=== PATIENT | female | born 1990 | race Caucasian/White ===

== ENCOUNTER 2022-05-07 11:16 | Emergency (ER) | payer BC, SELFPAY ==
[2022-05-07 13:10] LABS: Urine Blood 1+ (Negative); Urine Glucose Negative (Negative); Urine Protein Negative (Negative); Urine Specific Gravity >=1.030 (1.005-1.030); Urine pH 5.5 (5.0-7.0)
[2022-05-07 13:25] LABS: Urine Mucus Slight /HPF (None Seen); Urine RBC <5 /HPF (None Seen)
--- NOTE | 2022-05-07 14:06 | RAD REPORT ---
EXAM DESCRIPTION: CTStone Protocol - 05/07/2022 1:48 pm CLINICAL HISTORY: kidney stone suspected COMPARISON: Stone Protocol dated 07/27/2017; Abdomen Pelvis W Contrast dated 06/15/2016 TECHNIQUE: CT of the abdomen and pelvis was performed. All CT scans are performed using dose optimization technique as appropriate and may include automated exposure control or mA/KV adjustment according to patient size. FINDINGS: Lower chest: Calcified nodule in the right lower lobe. Liver: No acute abnormality or suspicious lesions. Biliary: No biliary ductal dilatation. Stomach: No significant focal abnormality. Duodenum: No significant focal abnormality. Pancreas: No significant abnormality. Spleen: No significant abnormality. Adrenal: No suspicious lesions. Kidney/ureter: No hydronephrosis. No renal calculi. Retroperitoneum: No retroperitoneal adenopathy. Vascular: No aneurysm. Bowel: Non perforated diverticulitis of the descending colon with inflammatory changes. No abscess or bowel obstruction. .. Peritoneum: No ascites or free air. Bladder: Grossly unremarkable. Reproductive: No adnexal masses. Bones: No acute fracture. Other: n/a IMPRESSION: Nonperforated diverticulitis of the descending colon. No urinary tract calculi identified. No appendicitis.
--- NOTE | 2022-05-07 14:22 | ER ---
Nurse's Notes [facility] Name: Manda Santos Age: 31 yrs Sex: Female : 1990 Arrival Date: 05/07/2022 Time: 11:25 Bed 11 Private MD: Diagnosis: Diverticulitis of large intestine without perforation or abscess without bleeding Presentation: 05/07 12:19 Chief complaint: Patient states: LUQ and LLQ pain x 2 days with urine frequency; denies vg1 NV or burning upon urination. Coronavirus screen: Vaccine status: Patient reports being unvaccinated. Client denies travel out of the [place] in the last 14 days. Ebola Screen: Patient denies exposure to infectious person. Patient denies travel to an Ebola-affected area in the 21 days before illness onset. Initial Sepsis Screen: Does the patient meet any 2 criteria? No. Patient's initial sepsis screen is negative. Does the patient have a suspected source of infection? No. Patient's initial sepsis screen is negative. Risk Assessment: Do you want to hurt yourself or someone else? Patient reports no desire to harm self or others. Onset of symptoms was May 05, 2022. 12:19 Method Of Arrival: Ambulatory vg1 12:19 Acuity: BLANCA 3 vg1 Triage Assessment: 12:21 General: Appears in no apparent distress. uncomfortable, Behavior is calm, cooperative. vg1 Pain: Complains of pain in left upper quadrant and left lower quadrant Pain currently is 5 out of 10 on a pain scale. Pain began 2-3 days ago. GI: Abdomen is round non-distended, Patient currently denies nausea, vomiting. : Reports urinary frequency, Denies burning with urination. 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 - Social history:: Smoking status: Patient reports the use of cigarette tobacco products, smokes one pack cigarettes per day. - Family history:: not pertinent. - Hospitalizations: : No recent hospitalization is reported. Screenin:19 Abuse screen: Denies threats or abuse. Denies injuries from another. Nutritional ss screening: No deficits noted. Tuberculosis screening: Never had TB. Fall Risk None identified. Assessment: 14:19 General: Appears in no apparent distress. comfortable, Behavior is calm, cooperative, ss Denies fever, feeling ill, fatigue, chills. Pain: Complains of pain in left lower quadrant and left upper quadrant Pain currently is 4 out of 10 on a pain scale. Neuro: Level of Consciousness is awake, alert, obeys commands, Oriented to person, place, time, situation, Speech is normal, Facial symmetry appears normal. Cardiovascular: Capillary refill < 3 seconds is brisk in bilateral fingers. Respiratory: Airway is patent Respiratory effort is even, unlabored, Respiratory pattern is regular, symmetrical. GI: Patient currently denies diarrhea, nausea, vomiting. : No signs and/or symptoms were reported regarding the genitourinary system. Derm: Skin is intact, is healthy with good turgor, Skin is dry, Skin is pink, warm \T\ dry. normal. Musculoskeletal: Range of motion: intact in all extremities, Swelling absent. Vital Signs: 12:19 BP 118 / 81; Pulse 82; Resp 16; Temp 98.6(TE); Pulse Ox 100% on R/A; Weight 63.5 kg; vg1 Height 5 ft. 0 in. (152.40 cm); Pain 5/10; 12:19 Body Mass Index 27.34 (63.50 kg, 152.40 cm) vg1 ED Course: 11:25 Patient arrived in ED. rg4 12:18 Clarence Cesar MD is Attending Physician. rn 12:21 Triage completed. vg1 12:21 Arm band placed on. vg1 13:49 CT Stone Protocol In Process Unspecified. EDMS 14:19 Patient has correct armband on for positive identification. Bed in low position. ss 14:35 Maxine Mason, RON is Primary Nurse. ss 14:35 No provider procedures requiring assistance completed. Patient did not have IV access ss during this emergency room visit. Administered Medications: No medications were administered Medication: 14:19 VIS not applicable for this client. ss Outcome: 14:22 Discharge ordered by . rn 14:35 Discharged to home ambulatory. ss 14:35 Condition: good 14:35 Discharge instructions given to patient, Instructed on discharge instructions, follow up and referral plans. medication usage, Demonstrated understanding of instructions, follow-up care, medications, Prescriptions given X 3. 14:35 Patient left the ED. ss Signatures: Dispatcher [employer] EDMS Clarence Cesar MD MD rn Smirch, Shelby, RN RN Ariana Fam rg4 Renetta Cruz RN RN vg1 Corrections: (The following items were deleted from the chart) 12:23 12:19 BP 118 / 81; Pulse 16bpm; Resp 82bpm; Pulse Ox 100% RA; Temp 98.6F Temporal; 63.5 vg1 kg; Height 5 ft. 0 in.; BMI: 27.3; Pain 5/10; vg1
--- NOTE | 2022-05-07 14:23 | EDPHYS ---
Physician Documentation [facility] Name: Manda Santos Age: 31 yrs Sex: Female : 1990 Arrival Date: 05/07/2022 Time: 11:25 Bed 11 Private MD: ED Physician Clarence Cesar HPI: 05/07 14:17 This 31 yrs old Female presents to ER via Ambulatory with complaints of Possible Kidney rn Stone. 14:17 The patient presents with abdominal pain in the left lower quadrant. rn 14:18 Onset: The symptoms/episode began/occurred 2 day(s) ago. The symptoms do not radiate. rn Associated signs and symptoms: Pertinent positives: nausea, Pertinent negatives: fever, hematuria. The symptoms are described as intermittent, sharp. Modifying factors: The symptoms are alleviated by nothing, the symptoms are aggravated by touching the area. Severity of pain: At its worst the pain was mild in the emergency department the pain is unchanged. The patient has not experienced similar symptoms in the past. The patient has not recently seen a physician. Pt reports hx of kidney stones, feels similar but pain more constant than before and not going away as fast as usually does. . 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 - Social history:: Smoking status: Patient reports the use of cigarette tobacco products, smokes one pack cigarettes per day. - Family history:: not pertinent. - Hospitalizations: : No recent hospitalization is reported. ROS: 14:18 Constitutional: Negative for fever, chills, and weight loss, Eyes: Negative for injury, rn pain, redness, and discharge, Neck: Negative for injury, pain, and swelling, Cardiovascular: Negative for chest pain, palpitations, and edema, Respiratory: Negative for shortness of breath, cough, wheezing, and pleuritic chest pain, Abdomen/GI: + LLQ abd pain Back: Negative for injury and pain, MS/Extremity: Negative for injury and deformity, Skin: Negative for injury, rash, and discoloration, Neuro: Negative for headache, weakness, numbness, tingling, and seizure. Exam: 14:18 Constitutional: This is a well developed, well nourished patient who is awake, alert, rn and in no acute distress. Cardiovascular: Regular rate and rhythm. No pulse deficits. Respiratory: No increased work of breathing, no retractions or nasal flaring. Abdomen/GI: Soft, mild LLQ tenderness, no rebound, no masses Skin: Warm, dry MS/ Extremity: Pulses equal, no cyanosis. Neuro: Awake and alert, GCS 15 Vital Signs: 12:19 BP 118 / 81; Pulse 82; Resp 16; Temp 98.6(TE); Pulse Ox 100% on R/A; Weight 63.5 kg; vg1 Height 5 ft. 0 in. (152.40 cm); Pain 5/10; 12:19 Body Mass Index 27.34 (63.50 kg, 152.40 cm) vg1 MDM: 12:18 Patient medically screened. rn 14:21 Differential diagnosis: diverticulitis, non-specific abd pain, Ureterolithiasis. rn Differential diagnosis: urinary tract infection. Data reviewed: vital signs, nurses notes. Data reviewed: lab test result(s), radiologic studies, CT scan, and as a result, I will discharge patient. Counseling: I had a detailed discussion with the patient and/or guardian regarding: the historical points, exam findings, and any diagnostic results supporting the discharge/admit diagnosis, lab results, radiology results, the need for outpatient follow up, to return to the emergency department if symptoms worsen or persist or if there are any questions or concerns that arise at home. Response to treatment: the patient's symptoms have mildly improved after treatment, and as a result, I will discharge patient. Special discussion: Based on the patient's Hx, exam, and Dx evaluation, there is no indication for emergent surgery or inpatient Tx. It is understood by the patient/guardian that if the Sx's persist or worsen they need to return immediately for re-evaluation. I discussed with the patient/guardian in detail that at this point there is no indication for admission to the hospital. It is understood, however, that if the symptoms persist or worsen the patient needs to return immediately for re-evaluation. 05/07 12:01 Order name: Urine Microscopic Only; Complete Time: 14:14 rn 05/07 13:10 Order name: Urine Dipstick-Ancillary; Complete Time: 14:14 EDMS 05/07 12:01 Order name: CT Stone Protocol; Complete Time: 14:14 rn 05/07 12:01 Order name: Urine Dipstick-Ancillary (obtain specimen); Complete Time: 13:10 rn 05/07 12:01 Order name: Urine Test (obtain specimen); Complete Time: 13:10 rn Administered Medications: No medications were administered Disposition Summary: 05/07/22 14:22 Discharge Ordered Location: Home rn Problem: new rn Symptoms: have improved rn Condition: Stable rn Diagnosis - Diverticulitis of large intestine without perforation or abscess without bleeding rn Followup: rn - With: Private Physician - When: As needed - Reason: Recheck today's complaints, Re-evaluation by your physician Discharge Instructions: - Discharge Summary Sheet rn - Diverticulitis rn Forms: - Medication Reconciliation Form rn - Thank You Letter rn - Antibiotic t rail turner - Prescription Opioid Use rn Prescriptions: - Flagyl 500 mg Oral Tablet - take 1 tablet by ORAL route every 8 hours for 10 days; 30 tablet; Refills: 0, rn Product Selection Permitted - Cipro 500 mg Oral Tablet - take 1 tablet by ORAL route every 12 hours for 10 days; 20 tablet; Refills: 0, rn Product Selection Permitted - Tramadol 50 mg Oral Tablet - take 1 tablet by ORAL route every 8 hours as needed; 12 tablet; Refills: 0, rn Product Selection Permitted Signatures: Dispatcher [employer] Clarence Adkins MD MD rn Garcia, Victoria, RN RN vg1
[2022-05-08 03:22] VITALS: BP 118/81; TEMP 98.6; O2SAT 100
== END 2022-05-07 14:35 | disposition home or self-care (01) ==
LOC: ER 11:16
DX: K57.32 Diverticulitis of large intestine without perforation or abscess without bleeding (principal); F17.210 Nicotine dependence, cigarettes, uncomplicated
CPT/HCPCS: 74176; 76377; 81003; 81015; 99283